=== PATIENT | female | born 1950 | race African-American/Black ===

== ENCOUNTER 2017-12-28 21:06 | Emergency (ER) | payer MEDICARE, MEDICAID ==
[~2017-12-28] VITALS: Ht 172.7 cm; Wt 75.0 kg
[~2017-12-28 21:06] MED LIST: AMLO5TAB4; ASPI-1158
[2017-12-28 23:42] LABS: CLARITY URINE CLEAR (CLEAR); COLOR URINE YELLOW (YELLOW); KETONES URINE NEGATIVE (NEGATIVE); LEUKOCYTE ESTERASE URINE 2+ (NEGATIVE); NITRITE URINE POSITIVE (NEGATIVE); OCCULT BLOOD URINE TRACE (NEGATIVE); PROTEIN URINE NEGATIVE (NEGATIVE); SPECIFIC GRAVITY URINE 1.016 (1.005-1.030); UROBILINOGEN URINE 0.2 E.U./dL (0.2-1.0)
[2017-12-29 00:21] LABS: BASOPHILS % 0.3 % (0.0-2.0); HEMOGLOBIN. 12.7 g/dL (12.0-16.0); LYMPHOCYTES % 36.9 % (20.0-50.0); MEAN CORPUSCULAR HEMOGLOBIN 28.4 pg (28.0-32.0); MEAN PLATELET VOLUME 7.9 fl (7.4-10.4); MONOCYTES % 9.7 % (2.0-8.0); NEUTROPHILS % 52.1 % (40.0-76.0); PLATELET 196 x1000/uL (130-400); RED BLOOD CELL COUNT 4.47 mill/uL (4.2-5.4)
[2017-12-29 00:25] LABS: CHLORIDE 103 mEq/L (98-107)
[2017-12-29] MEDS ORDERED: CEPHALEXIN 500MG CAPSULE PO SCH (01:30)
[2017-12-29 01:38] VITALS: BP 142/80
== END 2017-12-29 01:41 | disposition home or self-care (01) ==
LOC: ER 21:19 → CANBEDREQ 12-29 05:44
DX: N39.0 Urinary tract infection, site not specified (principal); I16.0 Hypertensive urgency; I10 Essential (primary) hypertension; Z90.710 Acquired absence of both cervix and uterus; M19.90 Unspecified osteoarthritis, unspecified site; Z79.82 Long term (current) use of aspirin
CPT/HCPCS: 36415; 80053; 81003; 85025; 87077; 87086; 87186; 93005; 99285

== ENCOUNTER 2023-11-14 21:52 | Emergency (ER) | payer BC, MEDICAID ==
[~2023-11-14] VITALS: Ht 170.2 cm; Wt 79.0 kg
[~2023-11-14 21:52] MED LIST changes: -ASPI-1158; +ASPI-1406; +LOSA-413 PO
[2023-11-14 22:05] VITALS: TEMP 98.6; O2SAT 99
[2023-11-15 01:12] LABS: BASOPHILS % 1.2 % (0.0-2.0); EOSINOPHILS % 0.1 % (0.0-5.0); HEMATOCRIT. 38.6 % (36.0-48.0); HEMOGLOBIN. 12.7 g/dL (12.0-16.0); LYMPHOCYTES % 30.5 % (20.0-50.0); MEAN CORPUSCULAR HEMOGLOBIN 30.5 pg (28.0-32.0); MEAN CORPUSCULAR VOLUME 92.4 fL (81.0-99.0); MEAN PLATELET VOLUME 8.3 fl (7.4-10.4); MONOCYTES % 10.4 % (2.0-8.0); NEUTROPHILS % 57.8 % (40.0-76.0); PLATELET 140 x1000/uL (130-400); RED BLOOD CELL COUNT 4.18 mill/uL (4.2-5.4); RED CELL DISTRIBUTION WIDTH 13.7 % (11.6-14.6); WHITE BLOOD COUNT 3.2 x1000/uL (4.5-11.0)
[2023-11-15 01:17] LABS: CHLORIDE 107 mEq/L (98-107); POTASSIUM 4.7 mEq/L (3.5-5.1); SODIUM 138 mEq/L (136-145)
[2023-11-15 01:18] LABS: CALCIUM 9.4 mg/dL (8.7-10.4); CARBON DIOXIDE 24 mEq/L (21-32)
[2023-11-15 01:23] LABS: CREATININE 0.8 mg/dL (0.6-1.0); GLUCOSE 98 mg/dL (70-105); UREA NITROGEN BLOOD 5 mg/dL (9-23)
[2023-11-15 01:25] LABS: ALANINE AMINOTRANSFERASE 88 IU/L (10-49); ALBUMIN 3.7 g/dL (3.2-4.8); ASPARTATE AMINOTRANSFERASE 105 IU/L (<34); BILIRUBIN TOTAL 0.8 mg/dL (0.1-1.0); TROPONIN I HIGH SENSITIVITY 8 ng/L (3.0-34)
[2023-11-15 01:26] LABS: PROTEIN TOTAL 9.4 g/dL (6.0-8.3)
[2023-11-15 01:28] LABS: ETHANOL BLOOD < 10 mg/dL (<10)
[2023-11-15] MEDS: ACETAMINOPHEN 1000MG/100ML 100 ML IV ONE (01:41)
[2023-11-15] MEDS: HYDRALAZINE 20MG/ML VIAL IV ONE (01:41)
[2023-11-15 03:46] LABS: TROPONIN I HIGH SENSITIVITY 11 ng/L (3.0-34)
[2023-11-15 03:55] LABS: INR 1.1; PARTIAL THROMBOPLASTIN TIME 32.2 sec (23.4-31.0); PROTHROMBIN TIME 12.4 sec (9.6-11.0)
[2023-11-15] MEDS ORDERED: IBUP-2437 MT (06:34)
[2023-11-15 06:54] VITALS: BP 126/64; PULSE 62; RESP 18
== END 2023-11-15 07:16 | disposition home or self-care (01) ==
LOC: ER 21:52
DX: G44.209 Tension-type headache, unspecified, not intractable (principal); I10 Essential (primary) hypertension; R74.01 Elevation of levels of liver transaminase levels; Z90.710 Acquired absence of both cervix and uterus; Z85.9 Personal history of malignant neoplasm, unspecified; Z86.73 Personal history of transient ischemic attack (TIA), and cerebral infarction without residual deficits
CPT/HCPCS: 36415 ×2; 71045; 70450; 93005; 99285; 80053; 80320; 83880; 83690; 85025; 85610; 85730; 84484; 96374; 96375; J0360; G0480; J0131

== ENCOUNTER 2024-05-05 18:13 | Emergency (ER) | payer MEDICARE, MEDICAID ==
[~2024-05-05] VITALS: Ht 170.2 cm; Wt 69.0 kg
[~2024-05-05 18:13] MED LIST changes: +IBUP-2437 MT
[2024-05-05 18:18] VITALS: O2SAT 100
[2024-05-05 20:07] LABS: BASOPHILS % 0.3 % (0.0-2.0); EOSINOPHILS % 0.9 % (0.0-5.0); HEMATOCRIT. 35.1 % (36.0-48.0); HEMOGLOBIN. 11.7 g/dL (12.0-16.0); LYMPHOCYTES % 43.3 % (20.0-50.0); MEAN CORPUSCULAR HEMOGLOBIN 30.2 pg (28.0-32.0); MEAN CORPUSCULAR HGB CONC 33.3 g/dL (31.0-37.0); MEAN CORPUSCULAR VOLUME 90.7 fL (81.0-99.0); MONOCYTES % 9.2 % (2.0-8.0); NEUTROPHILS % 46.3 % (40.0-76.0); PLATELET 139 x1000/uL (130-400); RED BLOOD CELL COUNT 3.87 mill/uL (4.2-5.4); RED CELL DISTRIBUTION WIDTH 13.4 % (11.6-14.6); WHITE BLOOD COUNT 2.5 x1000/uL (4.5-11.0)
[2024-05-05 20:12] LABS: CHLORIDE 107 mEq/L (98-107); POTASSIUM 4.3 mEq/L (3.5-5.1); SODIUM 138 mEq/L (136-145)
[2024-05-05 20:13] LABS: CALCIUM 10.1 mg/dL (8.7-10.4); CARBON DIOXIDE 30 mEq/L (21-32)
[2024-05-05 20:17] LABS: D-DIMER 0.19 mg/L FEU (<0.50); INR 1.1; PROTHROMBIN TIME 12.2 sec (9.6-11.0)
[2024-05-05 20:18] LABS: GLUCOSE 87 mg/dL (70-105); UREA NITROGEN BLOOD 13 mg/dL (9-23)
[2024-05-05 20:20] LABS: ALANINE AMINOTRANSFERASE 52 IU/L (10-49); ALBUMIN 3.6 g/dL (3.2-4.8); ASPARTATE AMINOTRANSFERASE 65 IU/L (<34); BILIRUBIN DIRECT 0.4 mg/dL (<=3.0); BILIRUBIN TOTAL 0.9 mg/dL (0.1-1.0); PROTEIN TOTAL 8.5 g/dL (6.0-8.3)
[2024-05-05 20:26] LABS: TROPONIN I HIGH SENSITIVITY < 4 ng/L (3.0-34)
[2024-05-05 22:24] VITALS: BP 135/80; PULSE 82; RESP 19; TEMP 37.16964; O2SAT 100
== END 2024-05-05 22:26 | disposition home or self-care (01) ==
LOC: ER 18:13
DX: R07.89 Other chest pain (principal); I10 Essential (primary) hypertension; G40.909 Epilepsy, unspecified, not intractable, without status epilepticus; Z90.710 Acquired absence of both cervix and uterus; Z86.73 Personal history of transient ischemic attack (TIA), and cerebral infarction without residual deficits
CPT/HCPCS: 36415; 71045; 80048; 80076; 83880; 84484; 85025; 85379; 93005; 99285